=== PATIENT | male | born 1980 | race Caucasian/White ===

== ENCOUNTER 2020-08-16 12:03 | Emergency (ER) | payer MEDICAID, SELFPAY ==
[2020-08-16] VITALS (9 sets, daily range): BP systolic 122–165; BP diastolic 80–98; PULSE 79–97; RESP 16–20; TEMP 36.3; O2SAT 96–100
--- NOTE | ~2020-08-16 | CT_ITS ---
EXAMINATION: CT abdomen pelvis w con INDICATION: Jaundice TECHNIQUE: Computed tomographic images of the abdomen and pelvis were obtained after the administrati on of 100 cc of Omnipaque 350 intravenous contrast. The dose-length product (DLP) was 561.99 mGy-cm. Automated exposure control and iterative reconstruction technique were employed. COMPARISON: 09/22/2004 FINDINGS: There are innumerable small nodules in the visualized lung bases. The largest measures 6 mm in the right lower lobe. There is a 12.3 x 8.2 x 14.2 cystic mass with peripheral soft tissue nodula rity which appears to arise from the fundus of the stomach. This exerts mass effect on the left kidne y and adrenal glands, stomach, the pancreas, and the spleen. There are innumerable masses throughout the liver. The left hepatic lobe is essentially a confluence of metastatic masses. The portal vein is occluded or significantly compressed by the liver masses. There is also significant mass effect on t he main portal vein by periportal lymphadenopathy. There is also mesenteric and retroperitoneal lymph adenopathy. Nodularity and thickening of the omentum are consistent with metastases. There is a moder ate volume of ascites. No dilated loops of bowel are evident. The spleen, gallbladder, and right adre nal gland are normal. The mass appears to displace rather than arise from the left adrenal gland. The re is mild lumbar spondylosis. IMPRESSION: 1. 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 2. Innumerable masses throughout the liver, occupying nearly the entire left hepatic lobe, innumerabl e lung nodules, mesenteric, periportal, and retroperitoneal lymphadenopathy, omental caking, all cons istent with metastatic disease. 3. Mass effect on the main portal vein by periportal lymphadenopathy and occlusion or mass effect on the left portal vein by left hepatic lobe masses. 4. Moderate volume of ascites. These findings were discussed with Dr. Hari Reed MD in the Emergency Department at 1445 hours on 08/16/2020. Reviewed, dictated and finalized at location A. [employer] IMPRESSION: 1. Cystic mass of the left upper quadrant which appears to arise from the stoma ch fundus, possibly reflecting gastrointestinal stromal tumor. 2. Innumerable masses throughout the liver, occupying nearly the entire left he patic lobe, innumerable lung nodules, mesenteric, periportal, and retroperitone al lymphadenopathy, omental caking, all consistent with metastatic disease. 3. Mass effect on the main portal vein by periportal lymphadenopathy and occlus ion or mass effect on the left portal vein by left hepatic lobe masses. 4. Moderate volume of ascites. These findings were discussed with Dr. Hari Reed MD in the Emergency Depar tment at 1445 hours on 08/16/2020.
[2020-08-16 12:25] LABS: Basophils Percent Auto 0.3 % (0.2-1.2); Eosinophils Absolute Auto 0.1 K/mm3 (0-0.3); Eosinophils Percent Auto 1.2 % (0-4.4); Hematocrit 42.6 % (42.0-52.0); Hemoglobin 14.8 g/dL (14.0-18.0); Immature Granulocyte Absolute 0.05 K/mm3 (0.00-0.031); Immature Granulocyte Percent A 0.4 % (0-0.5); Lymphocytes Absolute Auto 0.94 K/mm3 (0.9-3.2); Lymphocytes Percent Auto 8.1 % (18.3-44.2); Mean Corpuscular HGB Conc 34.7 g/dl (32-36); Mean Corpuscular Hemoglobin 29.2 pg (26-34); Mean Platelet Volume 8.9 fl (7.4-10.4); Monocytes Absolute Auto 1.4 K/mm3 (0.1-0.6); Monocytes Percent Auto 12.1 % (2.6-8.5); Neutrophils Percent Auto 77.9 % (45.5-73.1); Platelet Count Result 374 k/mm3 (150-375); Red Blood Count 5.07 M/mm3 (4.6-6.20); Red Cell Distribution Width 13.9 % (11.5-14.5); White Blood Count 11.5 K/mm3 (4.5-10.0)
--- NOTE | 2020-08-16 12:29 | ED.GENADULT ---
HPI - General Adult General Chief complaint: Unspecified Stated complaint: ULCER X 1 MO Time Seen by Provider: 08/16/20 12:21 Source: patient Mode of arrival: ambulatory Limitations: no limitations History of Present Illness HPI narrative: 39 years old white male presents with intermittent epigastric pain for the last 4 weeks. Patient noticed that his skin is yellowish in the last few days. Patient also complaining of intermittent dry heaves. Patient does not take medicine, smokes, does not drink or uses drugs. Patient denies fever, chills, vomiting, diarrhea, constipation or history of abdominal surgery. Related Data Home Medications Medication Instructions Recorded Confirmed No Home Medications 08/16/20 08/16/20 Allergies Allergy/AdvReac Type Severity Reaction Status Date / Time No Known Allergies Allergy Verified 08/16/20 12:15 Review of Systems Review of Systems: Narrative: CONSTITUTIONAL: Denies fever, chills, or sweats. EYES: Denies visual changes, redness, or discharge. ENT: Denies rhinorrhea, congestion, sore throat, or otalgia. CARDIOVASCULAR: Denies chest pain, palpitations, or edema. RESPIRATORY: Denies cough or dyspnea. GASTROINTESTINAL: Denies abdominal pain, nausea, vomiting, or diarrhea. GENITOURINARY: Denies dysuria or hematuria. SKIN: Denies rash or itching. MUSCULOSKELETAL: Denies back pain, joint pain, or myalgia. NEUROLOGIC: Denies headache, numbness, or weakness. PSYCHIATRIC: Denies anxiety or depression. PMFSH Social History Social History Gender identity (if verbalized by the patient): Male Exam Narrative: Exam Narrative: General appearance: Well-developed, well-nourished Skin: Jaundiced Head: Normocephalic, nontraumatic Eyes: Yellow discoloration ENT: Oropharynx normal, ears normal, nose normal Neck: Supple, nontender Chest and respiratory: Airway patent, no respiratory distress, no accessory muscle use Heart: Regular rate/rhythm Abdomen: Soft, large epigastric tender mass-like feeling could be hepatomegaly, , quiet bowel sounds Vascular: Normal peripheral pulses, normal capillary refill. Musculoskeletal: Normal range of motion, nontender back Neurologic: Alert and oriented ?3, PURSE FRAMER is normal as tested, no gross motor deficit Course Course Emergency Course: Stable Reevaluation(s) Reevaluation #1: Patient has been notified about the results of the CAT scan. The hospitalist/the nurse practitioner/Araceli requested to transfer patient to [facility] because of the hepatobiliary surgeon availability and the possibility of decompression surgery to improve the complication of the obstructive jaundice. Date: 08/16/20 Time: 19:14 Consultations Consultation #1: Dr. Ward, accepts the patient to be admitted to hospitalist for further evaluation. Date: 08/16/20 Time: 17:11 Consultation #2: DR SIMMONS, hospitalist and [facility] who accepted patient to be transferred to their facility. Date: 08/16/20 Time: 19:11 Vital Signs Vital signs: Vital Signs Temperature 36.3 C L 08/16/20 12:04 Pulse Rate 97 08/16/20 12:04 Respiratory Rate 18 08/16/20 12:04 Blood Pressure 165/98 H 08/16/20 12:04 Pulse Oximetry 100 08/16/20 12:04 Temperature 36.3 C L 08/16/20 12:04 Pulse Rate 95 08/16/20 19:00 Respiratory Rate 20 08/16/20 19:00 Blood Pressure 122/89 08/16/20 19:00 Pulse Oximetry 98 08/16/20 19:00 Medical Decision Making MDM Narrative Medical decision making narrative: Patient presents with jaundice and epigastric pain. Labs, CT abdomen and pelvis with IV contrast, IV fluid ordered. Pancreatic cancer, gallbladder pathology
[2020-08-16 12:37] LABS: Add Urine Microscopic? YES; Appearance Urine Clear (Clear); Bacteria Urine Trace /hpf; Bilirubin Urine 2+ (Negative); Blood Urine Negative (Negative); Color Urine Amber (Yellow); Glucose Urine UA Negative (Negative); Ketones Urine Trace mg/dL (Negative); Leukocyte Esterase Ur Negative LEU/UL (Negative); Mucus Urine Rare /lpf; Nitrate Urine Negative (Negative); Protein Urine 1+ mg/dL (Negative); RBC Urine 0-2 /hpf (0-2); Specific Grav Ur 1.021 (1.001-1.035); Squamous Epithelial Cell Urine Rare /hpf (Few); WBC Urine 0-3 /hpf
[2020-08-16 12:37] LABS: Alanine Aminotransferase 591 U/L (4-50); Albumin Level 4.2 g/dL (3.5-5.1); Alkaline Phosphatase 874 U/L (38-126); Anion Gap 8 mmol/L (8-16); Aspartate Amino Transferase 362 U/L (17-59); Bilirubin Direct 7.5 mg/dL (0-0.3); Bilirubin,Total 12.1 mg/dL (0.2-1.3); Blood Urea Nitrogen 6 mg/dL (9-20); Calcium 9.1 mg/dL (8.4-10.2); Carbon Dioxide 27 mmol/L (22-30); Chloride 86 mmol/L (98-107); Estimated CRCL calculation 138 ml/min; Estimated Glomerular Filt Rate > 60; Glucose 121 mg/dL (75-110); Lipase 65 U/L (23-300); Potassium 4.1 mmol/L (3.4-5.0); Sodium 121 mmol/L (137-145)
[2020-08-16] MEDS: SODIUM CHLORIDE 0.9% IV 1,000 ML 999 ML IV CONT (14:48)
--- NOTE | 2020-08-16 15:55 | P.PNCROSS_ITS ---
Event Note Event Note Event Note: Patient presented to the emergency department with complaints of intermittent epigastric discomfort, early satiety, and inability to eat more than a granola bar a day over the past [address] of the abdomen and pelvis showed a 12.3 x 8.2 x 14.2 cystic mass in the left upper quadrant which appears to arise from the stomach fundus as well as innumerable masses throughout the liver occupying nearly the entire left hepatic lobe with evidence of metastatic disease to the lung, lymph nodes, and omentum as well as mass-effect on the main portal vein by periportal lymphadenopathy and occlusion or mass-effect on the left portal vein by left hepatic lobe masses. Dr. Ed Razo (gastroenterology) was consulted by the ED physician and he accepted consult. After I reviewed the patient's chart I felt it would probably be in the patient's best interest to be seen at a tertiary care facility for consultation with a hepatobiliary specialist. I spoke via phone with Dr. Rogel (oncology) regarding the patient and findings on imaging. He is happy to see the patient in consult but due to the extent of the masses he would like [place] [facility] consulted for recommendations regarding management. Should the patient be transferred to their facility today or can he follow-up as outpatient? Is debulking an option due to his symptomatology or should we biopsy here and start the work-up? Dr. Lucinda Kay, hepatobiliary follow at [place], did feel it would be in the patient's best interest for him to be transferred to [place] to expedite workup and for consultation with several specialties.
--- NOTE | 2020-08-16 18:22 | PC.NURSE ---
CALL RECEIVED FROM [facility]. TRIAGE INFORMATION GIVEN. STATES WILL CALL WHEN BED IS AVAILABLE
--- NOTE | 2020-08-16 19:07 | PC.NURSE ---
room assignment [facility] [id number] [facility] A [phone]
--- NOTE | 2020-08-16 19:20 | PC.NURSE ---
report called to Rosey العراقي at [phone]. all questions answered.
[2020-08-16] MEDS: ACETAMINOPHEN 325 MG TABLET 650 MG PO (21:27)
== END 2020-08-16 23:12 | disposition short-term general hospital (02) ==
PROVIDERS: Emergency Medicine; Emergency Provider Emergency Medicine; Family Provider Family Medicine
DX: R19.02 Left upper quadrant abdominal swelling, mass and lump (principal); R17 Unspecified jaundice; R16.0 Hepatomegaly, not elsewhere classified; R91.8 Other nonspecific abnormal finding of lung field; R18.8 Other ascites
CPT/HCPCS: 36415; 74177; 80053; 81001; 82248; 83690; 85025; 96360; 99285; A9270; J7030; Q9967